=== PATIENT | male | born 1970 | race Hispanic/Latino ===

== ENCOUNTER 2018-05-11 20:59 | Emergency (ER) | payer OTHER ==
[2018-05-11] MEDS ORDERED: KETOROLAC TROMETHAMINE 60 MG/2 ML VIAL ONE (21:25)
[2018-05-11] MEDS ORDERED: DEXAMETHASONE SOD PHOSPHATE 10MG/ML 1ML VIAL ONE (21:25)
== END 2018-05-11 22:29 | disposition home or self-care (01) ==
LOC: EDH 20:59
DX: S80.12XA Contusion of left lower leg, initial encounter (principal); J02.9 Acute pharyngitis, unspecified; Z72.0 Tobacco use; W57.XXXA Bitten or stung by nonvenomous insect and other nonvenomous arthropods, initial encounter; Y93.89 Activity, other specified; Y92.89 Other specified places as the place of occurrence of the external cause; Y99.8 Other external cause status
CPT/HCPCS: 87880; 96372 ×2; 99284; J1100; J1885